=== PATIENT | male | born 1990 | race American Indian/Alaskan Native ===

== ENCOUNTER 2017-06-21 10:56 | Outpatient (CLI) | payer OTHER ==
--- NOTE | 2017-06-21 14:39 | Nuclear Medicine Report ---
BONE SCAN: History: Impingement of right shoulder. Right shoulder pain. Left spears pain. Comparison: None at this facility. After injection of isotope, gamma camera imaging of the bony system was done. There is a normal uptake of isotope throughout the bony structures without areas of significantly increased or decreased uptake. Normal uptake in the urinary system is seen. IMPRESSION: Normal bone scan.
== END 2017-06-21 10:57 | disposition home or self-care (01) ==
LOC: NM 10:56
DX: M75.41 Impingement syndrome of right shoulder (principal); M79.605 Pain in left leg
CPT/HCPCS: 78306; A9503